=== PATIENT | female | born 1970 | race Caucasian/White ===

== ENCOUNTER 2016-10-29 02:21 | Emergency (ER) | payer MEDICAID ==
--- NOTE | 2016-11-01 19:49 | ER ---
ADMIT: 10/29/2016 RM/LOC: ER [facility] MR#: [id number] [address] [id number] RAJESH LOMBARDI [address] [place] [id number] Emergency Room Report SEX: F AGE: 46 : 1970 DATE: 10/29/2016 HISTORY OF PRESENT ILLNESS: The patient is a 46-year-old female with chief complaint of cardiac stent, degenerative joint disease, hypertension, and endometriosis correction, came to the ER with chief complaint of upper and lower back pain. The patient states she had midline lower chest and posterior lower back pain for years. She could not recall any trauma. She states for the last few months, the pain has been increasing. The patient states she recently moved to [place] and has no proper followups yet. The patient states she took some Motrin at home which did not work. The pain is sharp, very similar to the previous pain per the patient she has daily. It increases with bending or range of motion of the spine. The patient denies shooting of the pain to the lower posterior leg or knees. The patient denies any saddle anesthesia, any new weakness or numbness, or any urinary or stool retention or incontinence. PHYSICAL EXAMINATION: VITAL SIGNS: The patient was afebrile, vitals are stable. GENERAL: The patient was in bed, sitting, was in hcmf-or-maqazots distress because of the low back pain. HEENT: The patient had no midline tenderness in spine and no step-offs. Head and neck are noncontributory. LUNGS: Clear bilaterally. HEART: Normal S1, S2 without any murmurs. ABDOMEN: Soft. NEURO: Motor and sensory is grossly normal. The rest of the neural exam is also normal. Straight leg raise was negative. LABORATORY AND X-RAY DATA: Chest x-ray was noncontributory. EKG was also noncontributory and negative. Lumbar x-ray along with the chest was suggestive of decreased disk space between T12 and L1, questionable for disk herniation/involvement. The patient also has some osteophytes suggestive of DJD. The pain was controlled with [place]. The patient could walk and stand on tiptoes and on heels without difficulty. The patient had no sensory or motor deficit, and no red flags for nerve entrapment. The patient can be discharged to home. Return precautions, prescription for Percocet for just three days, and follow up with the primary doctor as needed. The patient acknowledged she understood the plan and agreed with it. Rigoberto Noel MD/ antelmo JOB #: [id number] CC: Rigoberto Noel MD, Attending Physician Harvey Paez MD, Family Physician
== END 2016-10-29 04:15 | disposition home or self-care (01) ==
LOC: ER 02:21
DX: M54.5 Low back pain (principal); G89.29 Other chronic pain; Z88.2 Allergy status to sulfonamides; Z88.5 Allergy status to narcotic agent; Z79.899 Other long term (current) drug therapy

== ENCOUNTER 2016-12-19 08:39 | Emergency (ER) | payer MEDICAID ==
--- NOTE | 2017-01-08 15:42 | ER ---
ADMIT: 12/19/2016 RM/LOC: ER [facility] MR#: [id number] [address] [id number] RAJESH LOMBARDI [address] [place] [id number] Emergency Room Report SEX: F AGE: 46 : 1970 DATE: 12/19/2016 ADDENDUM: This patient comes to the ER initially with a complaint of having shortness of breath. She states she has been short of breath for the last 2 days and she notices the shortness of breath is worse when she is resting. The patient states she is newly moved to [place] and has been having difficulty trying to find a physician to treat her chronic back pain. She states where she moved from she was taking pain medicines regularly. She has been seen in our ER previously and at several urgent cares and nobody will refill her pain medication for her. I did do blood work and a chest x-ray. Her CBC, BMP, and D-dimer were negative. Her chest x-ray was negative. She was given Toradol and Norflex IM in the ER, which she states did not help her pain. I did offer to write her a prescription for Flexeril, which she refused. She states she does have an appointment with the pain specialist, and I encouraged her to keep that. I wrote a prescription for meloxicam for her to go home on. The patient became very angry because she was not getting any kind of narcotic script. I did order for her to have 2 Gilman 5 mg 2 tabs p.o.; however, she left before the nurse was able to give her that medication. DIAGNOSES: 1. Shortness of breath. 2. Chronic pain. Please see my T-sheet. CAROL[place] Mak / Power Finley MD / antelmo JOB #: [id number] CC: Power Finley MD, Attending Physician
== END 2016-12-19 11:10 | disposition home or self-care (01) ==
LOC: ER 08:39
DX: R06.02 Shortness of breath (principal); G89.29 Other chronic pain; M54.9 Dorsalgia, unspecified; I25.2 Old myocardial infarction; I10 Essential (primary) hypertension; E78.5 Hyperlipidemia, unspecified; M19.90 Unspecified osteoarthritis, unspecified site; Z88.2 Allergy status to sulfonamides